=== PATIENT | female | born 1955 | race Caucasian/White ===

== ENCOUNTER 2019-03-03 19:09 | Inpatient (IN) ==
--- NOTE | 2019-03-03 20:20 | Diag Imaging Result Doc PS360 ---
EXAM: CHEST-PORTABLE HISTORY: chest pain TECHNIQUE: Portable chest single view COMPARISON: 03/02/2019 FINDINGS: The lungs are well expanded. The heart is not enlarged. The vessels are not distended. There are no infiltrates. No effusion identified. IMPRESSION: Negative exam. Electronically signed by Jeramie Trejo 03/03/2019 8:18 PM
[2019-03-03 20:55] LABS: BASO# 0.02 X1000 (0.0-0.2); BASO% 0.3 % (0.0-0.8); EOS% 5.2 % (0.0-10.0); HEMOGLOBIN 12.1 g/dL (12.0-16.0); LYMPH# 1.67 X1000 (1.2-3.4); LYMPH% 28.8 % (20.5-51.1); MCH 28.5 PG (27-31); MCHC 33.6 g/dL (33-37); MCV 84.7 FL (81-99); MONO# 0.55 X1000 (0.11-0.59); MONO% 9.5 % (1.7-9.3); MPV 11.3 FL (7.4-10.4); NEUT# 3.25 X1000 (1.4-6.5); NEUT% 56.2 % (42.2-75.2); PLT 237 X1000 (130-400); RBC 4.25 XMIL (4.2-5.4); RDW 13.1 % (11.5-14.5); WBC 5.79 X1000 (4.8-10.8)
[2019-03-03 21:16] LABS: ALB/GLOB RATIO 1.9; ALBUMIN 4.3 g/dL (3.5-5.0); CALCIUM 9.8 mg/dL (8.8-10.2); POTASSIUM 4.2 mmol/L (3.5-5.1); TOTAL BILIRUBIN 0.17 mg/dL (0.20-1.00); TOTAL PROTEIN 6.6 g/dL (6.3-8.3)
--- NOTE | 2019-03-03 22:21 | PROVIDER DOCUMENTATION ---
This chart was entered by Meredith Hartman Scribe, acting as scribe for Manoj Stanford DO. HPI-Cardiac General - General Chief Complaint: B/P Problems Stated Complaint: CHEST PAIN AGAIN(HERE THIS AM) Time Seen by Provider: 03/03/19 19:26 Source: patient Allergies/Adverse Reactions: Patient Allergies Allergy/AdvReac Type Severity Reaction Status Date / Time No Known Allergies Allergy Verified 03/03/19 00:10 Home Medications: Home Medication List Medication Instructions Recorded Confirmed Last Taken Type Diltiazem [Cardizem] 30 mg PO BID #60 tab 03/03/19 Unknown Rx - History of Present Illness-Cardiac Nature of Presenting Problem: 63 yof c/o hypotension and left sided cp radiating into left arm. pt was seen yest at [facility] yest by dr. stanford. pt on rx cardizem and has been keeping bp log today. lowest was 89/66 on left arm and 118/70 on rt arm was the highest. pt denies diaphoresis, nvd and chills. Location: reports: other (left sided) Timing: still present Review of Systems - Adult - REVIEW OF SYSTEMS - ADULT Constitutional: reports: no symptoms reported Eyes: reports: no symptoms reported Ears, Nose, Mouth & Throat: reports: no symptoms reported Cardiovascular: reports: see HPI, chest pain, other (hypotension). denies: orthopnea, palpitations, syncope Respiratory: reports: no symptoms reported. denies: dyspnea on exertion, shortness of breath, wheezing Gastrointestinal: reports: no symptoms reported. denies: diarrhea, nausea, vomiting Genitourinary: reports: no symptoms reported Musculoskeletal: reports: no symptoms reported Integumentary: reports: no symptoms reported Neurological: reports: no symptoms reported. denies: dizziness/vertigo, heada zoey/migraines, syncope Psychiatric: reports: no symptoms reported Endocrine: reports: no symptoms reported. denies: change in skin pigment, excessive sweating Hematologic/Lymphatic: reports: no symptoms reported Allergic/Immunologic: reports: no symptoms reported All Other Systems: Reviewed and Negative Past History - Adult - PAST MEDICAL HISTORY-ADULT Review of Records: reports: Old Records Reviewed, Nursing Assessment Review, Medications Reviewed, Social history reviewed & non-contributory. Major Childhood Illnesses: reports: denies history Cardiovascular: reports: HTN Respiratory: reports: denies history Gastrointestinal: reports: denies history Obstetrical/Gynecological: reports: denies history Genitourinary: reports: denies history Musculoskeletal: reports: arthritis, fibromyalgia Neurological: reports: denies history Psychiatric: reports: depression Endocrine/Immune: reports: denies history Other Conditions: reports: other - PRIOR SURGERIES/PROCEDURES Surgical/Procedure History: reports: other - IMMUNIZATION STATUS Childhood Immunizations: See Nurse Assessment Flu Vaccine: See Nurse Assessment - FAMILY HISTORY Family History: reviewed, not pertinent - SOCIAL HISTORY Smoking: non-smoker Substance Use: none/never Physical Exam-General - PHYSICAL EXAM-ADULT Initial Vital Signs Reviewed: Yes - CONSTITUTIONAL General Appearance: appears well, alert, no apparent distress - EYES Eyes: PERRL/EOMI, pink conjunctivae - HEAD, EARS, NOSE, MOUTH & THROAT HENMT: normocephalic/atraumatic, moist mucous membranes, normal ENT inspection - NECK Neck: non-tender, full range of motion, supple, normal inspection - RESPIRATORY Respiratory: chest non-tender, lungs clear, normal breath sounds - CARDIOVASCULAR Cardiovascular: normal peripheral pulses, regular rate, rhythm, no edema, no gallop, no JVD, no murmur. negative: JVD, bradycardia, tachycardia, extra beats, friction rub - GASTROINTESTINAL (ABDOMEN) Abdominal Exam: normal bowel sounds, non tender, soft, no organomegaly, no pulsatile mass. negative: rigid, rebound, tenderness - LYMPHATIC Lymphatic: no adenopathy - MUSCULOSKELETAL Back Exam: normal inspection, no CVA tenderness, no vertebral tenderness Extremity: normal range of motion, non-tender, normal inspection Peripheral Pulses: radial (R): 2+, radial (L): 2+ - SKIN Integumentary: normal color, normal turgor, warm/dry - NEUROLOGIC Neurologic: grossly normal, no motor/sensory deficits - PSYCHIATRIC Psych/Mental Status: normal mood/affect, normal thought content, normal thought process, oriented x 3 - HEART Score HEART Score: History: Moderately Suspicious HEART Score: ECG: Non-Specific Repolarization Disturbance/LBBB/PM HEART Score: Age: > or = 65 Years HEART Score: Risk Factors for Atherosclerotic Disease: 1 or 2 Risk Factors HEART Score: Troponin: < or = Normal Limit Total HEART Score:: 5 Progress - PLAN OF CARE/RESULTS Progress/Plan/Lab Results: Vital Signs - 8 hr 03/03/19 19:23 03/03/19 19:42 03/03/19 19:43 Temperature 97.8 F Pulse Rate 72 62 66 Respiratory Rate 16 15 16 Blood Pressure 117/58 133/71 O2 Sat by Pulse Oximetry 98 99 03/03/19 19:50 03/03/19 20:00 03/03/19 20:02 Temperature Pulse Rate 72 63 66 Respiratory Rate 20 19 21 Blood Pressure 128/70 O2 Sat by Pulse Oximetry 97 96 95 03/03/19 20:10 03/03/19 20:20 03/03/19 20:30 Temperature Pulse Rate 65 66 64 Respiratory Rate 22 18 20 Blood Pressure O2 Sat by Pulse Oximetry 95 96 96 03/03/19 20:32 Temperature Pulse Rate 66 Respiratory Rate 18 Blood Pressure 126/86 O2 Sat by Pulse Oximetry 98 Laboratory Results - last 24 hr 03/03/19 03/03/19 03/03/19 20:44 20:44 20:44 WBC 5.79 RBC 4.25 Hgb 12.1 Hct 36.0 L MCV 84.7 MCH 28.5 MCHC 33.6 RDW Std Deviation 13.1 Plt Count 237 MPV 11.3 H Immature Gran % (Auto) 0.0 Neut % (Auto) 56.2 Lymph % (Auto) 28.8 Barren % (Auto) 9.5 H Eos % (Auto) 5.2 Baso % (Auto) 0.3 Immature Gran # (Auto) 0.00 Neut # (Auto) 3.25 Lymph # (Auto) 1.67 Barren # (Auto) 0.55 Eos # (Auto) 0.30 Baso # (Auto) 0.02 Sodium 141 Potassium 4.2 Chloride 105 Carbon Dioxide 23 L Anion Gap 13 BUN 17 Creatinine 1.0 H Estimated GFR/1.73 m2 56 BUN/Creatinine Ratio 17 Glucose 86 Calculated Osmolality 282 Calcium 9.8 Total Bilirubin 0.17 L AST 16 ALT 17 Alkaline Phosphatase 81 Creatine Kinase 57 Troponin T < 0.010 Total Protein 6.6 Albumin 4.3 Globulin 2.3 Albumin/Globulin Ratio 1.9 Orders Category Date Time Status CHEST-PORTABLE [RAD] Stat Exams 03/03/19 19:59 Completed CBC WITH ELECTRONIC DIFF [HEME] Stat Lab 03/03/19 20:44 Completed CK PROFILE [SP CHEM] Stat Lab 03/03/19 20:44 Completed COMPREHENSIVE METABOLIC PANEL [CHEM] Stat Lab 03/03/19 20:44 Completed TROPONIN T Stat Lab 03/03/19 20:44 Completed EKG [EKG] Stat Ther 03/03/19 19:30 Ordered Result Diagrams: 03/03/19 20:44 03/03/19 20:44 - EKG 1 Time of EKG reading by physician:: 19:37 EKG Read and Signed by:: Manoj Stanford EKG Interpretation (*Must complete 3 of following elements*): Abnormal Rate: 66 Rhythm: NSR [place]: normal QRS: normal, other (low voltage qrs) RI Interval: normal ST Wave: non-specific ST changes (nonspecific st abnormality) - CONSULTS/PCP/HOSPITALIST Notification #1 *Consult/PCP/Hospitalist*: Dr. Soto Time Discussed: 22:16 Consult Disposition: Will see in ED Departure - Departure Date of Disposition Decision: 03/03/19 Time of Disposition Decision: 22:20 DIAGNOSIS: Chest pain Disposition: ADMITTED INPATIENT 09 Certified Medical Emergency: Emergent Condition: Stable Referrals and Follow-Ups: Gifty Bowen MD [Primary Care Provider] - - Critical Care Note This patient required my direct & personal management of CC.: No Attestation - Physician/ NIRMALA Attestation Patient care was provided by Advanced Practice Provider:: No The physician spent face to face time with patient:: Yes Advanced Practice Provider documentation review:: Supervising physician onsite and consulted in the evaluation and care of this patient. The physician did have a face to face encounter with the patient. This chart was documented by the indicated scribe, (Meredith Hartman Scribe) and accurately reflects the services I performed and decisions made by Hien wilkerson Thomas E., DO, as attested by the provider's signature.
--- NOTE | 2019-03-03 22:36 | EKG Report ---
Test Performed on : 03/03/2019 7:37:12 PM Test Reason : cp/ bp Blood Pressure : / mmHG Vent. Rate : 066 BPM Atrial Rate : 066 BPM P-R Int : 144 ms QRS Dur : 082 ms QT Int : 398 ms P-R-T Axes : 073 069 019 degrees QTc Int : 417 ms Normal sinus rhythm. Low voltage QRS Nonspecific ST abnormality Abnormal ECG When compared with ECG of 02-MAR-2019 23:02, (Unconfirmed) No significant change was found Unconfirmed Result
[2019-03-04] MEDS ORDERED: ZOFRAN IV PRN (00:38)
[2019-03-04] MEDS ORDERED: TYLENOL PO PRN (00:38)
[2019-03-04] MEDS: MORPHINE IV PRN ×4 (01:27→16:55)
--- NOTE | 2019-03-04 01:47 | HISTORY AND PHYSICAL ---
PRIMARY CARE PHYSICIAN: Dr. Bowen. CHIEF COMPLAINT: Chest pain, low blood pressure. HISTORY OF PRESENTING ILLNESS: A 63-year-old female with a history of fibromyalgia, hypertension, chronic low back pain, and atrial fibrillation, who presented to emergency department with complaint of having chest pain. She states that it was dull-like and was radiating to left upper extremity. The patient stated that she also noticed her blood pressure was getting low, around high 80s. She was concerned and subsequently she had come to the emergency department. In the ED, she was evaluated and, due to her presenting symptoms, it was thought that we will place her for observation for further evaluation and management. At time of my examination, she denied any headache, fever, chills, nausea, vomiting, diarrhea, hemoptysis, melena, weight changes, but complained of chest pain and shortness of breath. PAST MEDICAL HISTORY: Includes fibromyalgia, hypertension, chronic low back pain, atrial fibrillation, pericarditis. PAST SURGICAL HISTORY: Hysterectomy, cholecystectomy, right knee surgery, possible pericardiocentesis. ALLERGIES: No known drug allergies. CURRENT MEDICATIONS: She does not recall and nursing staff will reconcile. She stated that, however, she was taking diltiazem and [place]. SOCIAL HISTORY: No history of smoking, alcohol, or illicit drug use. FAMILY HISTORY: Positive for coronary artery disease in Father. REVIEW OF SYSTEMS: Fourteen point review of systems is as in HPI. Other systems negative. PHYSICAL EXAMINATION: GENERAL: Cooperative, friendly female. She is resting more comfortably now. VITAL SIGNS: Temperature 97.8 degrees, pulse 72, respirations 16, blood pressure 117/58. HEENT: Atraumatic, normocephalic. Extraocular movements intact. PERRLA. NECK: No masses. CHEST: Clear to auscultation. CARDIOVASCULAR: Regular rate and rhythm. ABDOMEN: Soft. Positive bowel sounds. EXTREMITIES: No edema. NEUROLOGIC: She is awake, alert, oriented x3. GENITOURINARY: No bladder distention. SKIN: Warm. LABORATORIES AND STUDIES: WBCs 5.79, hemoglobin 12.1, hematocrit 36.0, platelets 237,000. Sodium 141, potassium 4.2, chloride 105, CO2 is 23, BUN is 17, creatinine is 1.0. Glucose is 86. Chest x-ray, negative exam. ASSESSMENT: A 63-year-old female with a history of fibromyalgia, hypertension, chronic low back pain, and atrial fibrillation, had presented to emergency department with complaint of chest pain. She was evaluated in the emergency department, and due to her presenting symptoms, she will require admission for further management. 1. Chest pain. 2. Hypotension. Currently normotensive now. 3. Fibromyalgia. 4. Chronic low back pain. 5. Atrial fibrillation by history. PLAN: 1. We will admit patient to medical floor with telemetry. 2. Continue with cardiac workup. Check EKG, serial cardiac enzymes. Have patient continue on aspirin. We will use sublingual nitroglycerin p.r.n. chest pain. 3. Consult Cardiology. 4. Monitor blood pressure closely. Continue gentle hydration. 5. Give adequate pain control. 6. Continue to monitor patient on telemetry and check EKG. 7. Put patient on DVT prophylaxis with SCDs. 8. We will continue to follow and reassess, make further recommendation based on patient's clinical course. cc: Harvey Soto MD MTDD
[2019-03-04 06:59] LABS: CHOLESTEROL 136 mg/dL (0-200); HDL 69 mg/dL (45-65); LDL 55 mg/dL; TRIGLYCERIDES 60 mg/dL (35-135); VLDL 12 mg/dL
[2019-03-04] MEDS ORDERED: PRILOSEC PO SCH (07:00)
[2019-03-04] MEDS: ASPIRIN PO SCH (09:35)
[2019-03-04] MEDS: VITAMIN B-12 PO SCH (11:51)
[2019-03-04] MEDS: CARDIZEM PO SCH ×2 (11:51→20:22)
[2019-03-04] MEDS ORDERED: NITROGLYCERIN SL PRN (12:01)
--- NOTE | 2019-03-04 12:27 | PROGRESS NOTE ---
DATE: 03/04/2019 INTERVAL HISTORY: Ms. Zee was admitted for substernal chest pain and readings of low blood pressure which was in high 80s of about 1 to 2 days' duration. Overnight, she continues to have chest pain which is radiating to left arm. She states there are no other aggravating or relieving factors. She received aspirin and morphine in the morning time, which helps with her chest pain. EKG and troponins were largely unremarkable. Patient also complains of right- sided lower abdominal pain for which she had gone to visit her regular doctor. She states her brother had premature coronary artery disease and of myocardial infarction at the age of 34 and father had a myocardial infarction as well. VITALS: Currently, temperature 98 degrees, pulse 70, respiratory rate 19, blood pressure 131/71, saturating 99% on room air. PHYSICAL EXAMINATION: She does not appear in any acute distress. Oral cavity is moist. Lungs: Air entry bilaterally equal. No wheeze, rhonchi, crackles. Cardiovascular: S1, S2 normal. No murmur, rub, or gallop. There is mild localized tenderness in substernal region. She also has what appears to be a lipoma in the left neck, supraclavicular region. Abdomen is soft. There is tenderness in the right lower quadrant. No lower extremity edema. She is alert and oriented x3. She has also been undergoing a lot of stress right now. LABS: Suggestive of what appears to be chronic kidney dysfunction in stage IIIA. Echocardiogram has been ordered. EKG had normal sinus rhythm. ASSESSMENT AND PLAN: 1. Chest pain. She does have some atypical features. However, she also mentions history of premature coronary artery disease in her brother and positive family history of coronary artery disease in her father. She also mentions exertional shortness of breath. Considering her age and other risk factors, I would consult cardiology for likely nuclear medicine stress test for further risk stratification and cardiology evaluation is pending. Her troponins and EKG are largely unremarkable, ruling out acute coronary syndrome. I will continue her on 325 aspirin daily. We will start her on nitroglycerin sublingually as needed for chest pain. 2. Reported history of Hypotension: She told me it was in high 80s. Unclear if she was really symptomatic from it. Her dilitiazem could have contributed to it. I will monitor under telemetry unit with frequent BP checks. 2. History of paroxysmal atrial fibrillation. There is no record of this. However, she tells me that her regular doctor told her 5 days ago when she saw her in her clinic that she was in atrial fibrillation. I will keep her on diltiazem which is her home medication and aspirin. I will also get a diabetes panel and a lipid panel. I advised her outpatient discussion with her hull inspector and regular doctor for starting anticoagulation for primary CVA prophylaxis. 3. History of fibromyalgia, insomnia, and anxiety. Continue home tizanidine, zolpidem, bupropion, and [place] for chronic pain. 4. Disposition. I will continue to monitor patient inside the hospital. Plan of care discussed with her. All of her questions have been answered. cc: Carl Blair MD MTDD
[2019-03-04] MEDS: LOVENOX SUBQ SCH (12:41)
[2019-03-04] MEDS: NORCO-10 PO PRN ×2 (12:41→21:02)
--- NOTE | 2019-03-04 15:17 | CARDIOLOGY CONSULTATION ---
DATE: 03/04/2019 CHIEF COMPLAINT: Chest pain. HISTORY OF PRESENT ILLNESS: Ms. Zee is a 63-year-old white female with a history of previous pericardial effusion with pericardial window as well as palpitations. She presents for evaluation of chest pain that seems like it has been a relatively chronic feature for many years, but over the last week it has worsened. There is an exertional component it seems like associated with some shortness of breath and some radiation down the left arm. In addition, there is a component reproducible with palpation of the left chest wall. She reports no previous trauma to that area. She is a somewhat difficult historian as she frequently relates medical history from several years ago when being questioned about current situations. She reports no recent febrile illnesses. No recent changes in medications. PAST MEDICAL HISTORY: 1. Significant for palpitations. Has undergone previous evaluations per Dr. Awad with no apparent cause. 2. History of pericarditis with pericardial window performed many years ago. 3. Chronic pain. 4. Reflux disease. SOCIAL HISTORY: No tobacco, alcohol, or illicit drugs. FAMILY HISTORY: Apparent history of coronary artery disease in her father. REVIEW OF SYSTEMS: A 10-system review of systems is negative except for those things mentioned in HPI. PHYSICAL EXAMINATION: Vital Signs: Afebrile. Heart rate 75, blood pressure 129/75. General: No acute distress. Cardiovascular: She sounds to be in a regular rate and rhythm. She has no obvious murmur. She has no S3. She has no lower extremity edema. Chest: Clear bilaterally. She has no increased work of breathing. Abdomen: Soft, nontender, nondistended. She has no obvious organomegaly. Skin: Warm and dry throughout without any rashes. Neurological: She is moving all extremities well. She has no lateralizing deficits. PERTINENT DATA: She had a chest x-ray that was unremarkable. EKG shows sinus rhythm, no acute ischemic changes. LABORATORY DATA: Shows a white count of 5.8, hematocrit 36, platelet count 237,000. Sodium 141, potassium 4.2, BUN 17, creatinine is 1. Her LDL is 55. HDL 69. Cardiac enzymes negative. ASSESSMENT: Ms. Zee is a 63-year-old female who comes in with complaints of chest pain. PLAN: We will proceed with myocardial perfusion imaging in the morning. Initial review of her echo shows intact wall motion but no obvious segmental abnormalities. If this is unremarkable, then she can follow up with Dr. Awad as an outpatient. cc: Asim Sky MD
[2019-03-04] MEDS: ZANAFLEX PO SCH (20:21)
[2019-03-04] MEDS: AMBIEN PO SCH (20:21)
[2019-03-04] MEDS: WELLBUTRIN SR PO SCH (20:21)
[2019-03-05] MEDS: PRILOSEC PO SCH (06:02)
--- NOTE | 2019-03-05 07:50 | EKG Report ---
Test Performed on : 03/05/2019 07:36:33 AM Test Reason : chest pain Blood Pressure : / mmHG Vent. Rate : 073 BPM Atrial Rate : 073 BPM P-R Int : 148 ms QRS Dur : 082 ms QT Int : 410 ms P-R-T Axes : 073 082 032 degrees QTc Int : 451 ms Normal sinus rhythm. Normal ECG When compared with ECG of 03-MAR-2019 19:37, (Unconfirmed) No significant change was found Confirmed by Dean Taylor MD ([id number]) on 03/05/2019 4:11:36 PM
[2019-03-05 07:53] LABS: CALCIUM 9.2 mg/dL (8.8-10.2); CREATININE 1.2 mg/dL (0.5-0.9)
[2019-03-05] MEDS: NORCO-10 PO PRN ×2 (08:16→20:50)
[2019-03-05] MEDS ORDERED: LEXISCAN ONE (10:49)
--- NOTE | 2019-03-05 12:40 | ECHO REPORT ---
ORDER DATE: 03/04/2019 INDICATION: Chest pain. FINDINGS: 1. The right atrium appears normal in size at 2.2 cm. 2. Mild tricuspid regurgitation. RV systolic pressure of 37. 3. Normal RV size and systolic function. 4. No significant pulmonic insufficiency. 5. Suggestion of mild left atrial enlargement, although the measurement is only 3.4 cm. 6. No mitral valve prolapse. Mild mitral regurgitation. No mitral stenosis. 7. Normal LV size, end-diastolic dimension of 3.9. Normal wall thicknesses with a posterior and interventricular septal wall thickness of 0.8 cm each. Normal LV systolic function. Estimated EF of 55-60% with normal wall motion. 8. Aortic valve opens well. There is trace insufficiency. No stenosis. 9. Aorta appears normal in visualized segments. 10. No pericardial effusion seen. cc: MD Harvey Zavala MD
[2019-03-05] MEDS: WELLBUTRIN SR PO SCH ×2 (13:03→20:57)
[2019-03-05] MEDS: VITAMIN B-12 PO SCH (13:03)
[2019-03-05] MEDS: CARDIZEM PO SCH ×2 (13:03→20:57)
[2019-03-05] MEDS: ASPIRIN PO SCH (13:03)
[2019-03-05] MEDS: MORPHINE IV PRN (13:04)
[2019-03-05] MEDS: LOVENOX SUBQ SCH (13:04)
--- NOTE | 2019-03-05 14:14 | Diag Imaging Result Document ---
PROCEDURE NAME: MYOCARDIAL PERF SCAN, STR/REST - 03/05/2019 LEXISCAN CARDIOLITE STRESS TEST: Lexiscan was infused per standard protocol. There was no chest pain. Stress electrocardiogram was negative for ischemia. Following Lexiscan infusion, Cardiolite was injected. Gated SPECT images were obtained in standard views. Images revealed chest wall attenuation. Normal myocardial perfusion. Left ventricular ejection fraction by gated SPECT was 81%. Normal left ventricular cavity size. CONCLUSIONS: 1. No chest pain. 2. Negative Lexiscan stress electrocardiogram. 3. Normal myocardial perfusion. 4. Left ventricular ejection fraction by gated SPECT was 81%. Baseline electrocardiogram revealed normal sinus rhythm with nonspecific ST-T changes. cc: MD Asim Valente MD
--- NOTE | 2019-03-05 17:02 | PROGRESS NOTE ---
DATE: 03/05/2019 INTERVAL HISTORY: Her troponins were negative. Echocardiogram had normal ejection fraction without any acute valvular pathology. She underwent nuclear medicine myocardial perfusion stress test which did not detect any inducible ischemia and had normal ejection fraction without any regional wall motion abnormality. SUBJECTIVE: I in discussed with the patient about possibly chronic gastroesophageal reflux disease and anxiety contributing to her chest discomfort. She is now worried about her right upper quadrant pain and she states that she had a partial nephrectomy about 40 years ago. However, since last few weeks, she has been complaining of right-sided abdominal pain and her provider had scheduled her to get an outpatient ultrasound done, and she is wondering if that could be done inside this hospital. I explained to her that this is an outpatient procedure and she could just get it done outpatient. However, she states that she is under a lot of stress because of the many social issues, and it would be stressful for her to go back today and come back to get that ultrasound done, and she is again requesting to get it done while she is here, so I decided to keep her here and get the ultrasound done. OBJECTIVE: Vital Signs: Temperature 97.8 degrees, pulse 80, respiratory rate 18, blood pressure 130/67, saturating 98% on room air. General: Does not appear in any acute distress. HEENT: Oral cavity is moist. Lungs: Air entry bilaterally equal. No wheeze, rhonchi, crackles. Cardiovascular: S1, S2 normal. No murmur or gallop. Abdomen: Soft. Mild tenderness in right upper quadrant without any guarding or rigidity. Extremities: No lower extremity edema. Neurologic: She is alert and oriented x3. LABORATORY DATA: Suggestive of negative troponins. Her LDL is 55, HDL is 69. She does have chronic kidney disease stage 3. ASSESSMENT AND PLAN: 1. Chest pain, likely related to chronic gastroesophageal reflux disease as well as anxiety. Her nuclear medicine stress test, echocardiogram, EKG and troponins have been negative. 2. Subacute right upper quadrant pain. She states she did have prior history of partial nephrectomy about 40 years ago, the details of which are unclear to me. Her outpatient provider had recommended ultrasound that she was supposed to get done tomorrow. The patient wants to remain inside the hospital for that ultrasound, so I have requested ultrasound to be done. She should follow up with the results with her outpatient provider. 3. Reported history of hypotension. The patient does mention that she does have 120 mg of capsule and she has been opening it and taking half a capsule every 12 hours which was extended release preparation. I explained to her about not doing that and that could have contributed to her hypotension. Her current dose of diltiazem is not bringing any blood pressure down. 4. Paroxysmal atrial fibrillation. Continue diltiazem. Outpatient cardiology followup. 5. Anxiety and chronic pain with fibromyalgia and insomnia. Continue home tizanidine, zolpidem, bupropion, and [place]. DISPOSITION: When right upper ultrasound abdomen is complete, my plan is to discharge her home. I will go ahead and place a discharge order for tomorrow morning after ultrasound is done. Plan of care discussed with her and her family and friends at bedside. All of their questions have been answered. cc: Carl Blair MD
--- NOTE | 2019-03-05 18:19 | Diag Imaging Result Doc PS360 ---
EXAM: US ABDOMEN-COMPLETE 03/05/2019 HISTORY: Constant RUQ pain. H/o ?partial Rt nephrectomy TECHNIQUE: Abdominal ultrasound COMMENT: The gallbladder is surgically absent. The pancreas is normal in appearance. The visualized portions of the aorta and inferior vena cava are within normal limits. The liver is unremarkable. There is antegrade flow in the portal vein. There is no evidence of biliary dilatation the common bile duct measuring less than 8 mm in diameter. The kidneys are without evidence of hydronephrosis or mass. The spleen is not enlarged. There are no abnormal fluid collections. IMPRESSION: No evidence of acute disease. Electronically signed by Jeyson Catherine 03/05/2019 6:17 PM
[2019-03-05] MEDS: ZANAFLEX PO SCH (20:57)
[2019-03-05] MEDS: AMBIEN PO SCH (20:58)
[2019-03-06] MEDS: PRILOSEC PO SCH (06:11)
[2019-03-06 07:41] VITALS: BP 132/71
[2019-03-06] MEDS ORDERED: PNEUMOVAX 23 IM ONE (08:41)
[2019-03-06] MEDS: VITAMIN B-12 PO SCH (09:03)
[2019-03-06] MEDS: CARDIZEM PO SCH (09:03)
[2019-03-06] MEDS: WELLBUTRIN SR PO SCH (09:03)
--- NOTE | 2019-03-06 10:03 | DISCHARGE SUMMARY ---
ADMISSION DATE: 03/05/2019 DISCHARGE DATE: 03/06/2019 DISCHARGE DISPOSITION: Home. DISCHARGE CONDITION: Hemodynamically stable. She does not have any more chest pain. She is denying any shortness of breath or palpitation. DISCHARGE DIAGNOSES: 1. Atypical chest pain. 2. Reported history of hypotension with blood pressure in high 80s/low 50s, likely due to inappropriate use of diltiazem. 3. Subacute right upper quadrant abdominal pain. OTHER DIAGNOSES: 1. History of paroxysmal atrial fibrillation. 2. History of fibromyalgia. 3. History of insomnia. 4. History of anxiety. 5. History of cholecystectomy. 6. History of pericardiocentesis for pericarditis. 7. Chronic kidney disease stage 3. VITAL SIGNS: At the time of current dictation, temperature 97.8 degrees, pulse 80, respiratory rate 18, blood pressure 132/67, saturating 98% on room air. PHYSICAL EXAMINATION: At the time of dictation oral cavity is moist. Lungs: Air entry bilaterally equal. No wheeze, rhonchi. S1 normal. No murmur or gallop. Abdomen: Soft. She has tenderness in right upper quadrant without guarding or rigidity. No lower extremity edema. She is alert and oriented x3. LABS: Significant labs during hospital admission and discharge, hemoglobin 12.1, WBC 5.7, platelets 237,000. Potassium 4, BUN 13, creatinine 1.2, diagnosis of chronic kidney disease stage 3. Troponins are negative x4. LDL was 55, HDL was 69, total cholesterol 136. IMAGING: Significant imaging during hospital admission, myocardial perfusion scan, she did not have any chest pain during the stress test. It was negative stress electrocardiogram, normal myocardial perfusion with ejection fraction of 81% by gated SPECT. Baseline electrocardiogram revealed normal sinus rhythm with nonspecific ST-T changes. Echocardiogram had ejection fraction of 55 to 60% with normal wall motion without any significant valvular pathology. Chest x-ray on admission had a negative exam. EKG had normal sinus rhythm, low voltage QRS and nonspecific ST abnormality. HOSPITAL COURSE SUMMARY: Ms. Zee is a [id number] lady with past medical history of anxiety, who came in with chief complaint of intermittent chest pain located in the center of the chest associated with mild shortness of breath without any exertional worsening. However, she did have prior history of premature coronary artery disease in her brother and positive family history of coronary artery disease in her father and she complained of exertional shortness of breath on climbing up stairs. Considering age and other risk factors, Cardiology was consulted. Though EKG did not have any acute coronary syndrome-related changes and troponins were negative for further risk stratification, she underwent nuclear medicine myocardial perfusion stress imaging which did not detect any regional wall motion abnormality or inducible ischemia. It was thought that her chest pain was likely related to her chronic gastroesophageal reflux disease and anxiety and she was advised to follow up with her regular doctor. She has also been complaining of right-sided abdominal pain since many months now and she was being followed up with her regular doctor who had scheduled to get an outpatient ultrasound on her on March 06. Since patient was in the hospital, she requested ultrasound to be done. I had explained to her that it may not be done until the next 24 hours considering the timing and it was already the end of the day. However, she persistently requested to remain inside the hospital to get the ultrasound done, so it was ordered. She will follow up with the results with her outpatient provider. At the time of discharge detailed discharge instructions were provided. Her hypotension was thought to be related to inappropriate taking diltiazem which she was taking for paroxysmal atrial fibrillation. She was opening the delayed release capsule and taking the half capsule twice a day, which could have contributed to hypotension. Inside the hospital she did not have any hypotensive episode. TIME SPENT: More than 30 minutes were spent discharging this patient. cc: MD BE Galvez
== END 2019-03-06 09:38 | disposition home or self-care (01) | DRG 392 ==
LOC: ED 19:09 → SUATTDRO 23:56 → INTOOBSV 23:56 → 3N 23:56
PROVIDERS: ATTEND Internal Medicine

== ENCOUNTER 2019-10-11 21:10 | Inpatient (IN) ==
[2019-10-11 22:19] LABS: BASO# 0.02 X1000 (0.0-0.2); BASO% 0.1 % (0.0-0.8); EOS# 0.45 X1000 (0.0-0.7); EOS% 3.3 % (0.0-10.0); HEMATOCRIT 40.7 % (37.0-47.0); HEMOGLOBIN 12.6 g/dL (12.0-16.0); IMM GRAN# 0.05 X1000 (0.0-0.04); IMM GRAN% 0.4 % (0.0-0.5); LYMPH# 1.55 X1000 (1.2-3.4); LYMPH% 11.4 % (20.5-51.1); MCH 26.6 PG (27-31); MCV 85.9 FL (81-99); MONO# 0.82 X1000 (0.11-0.59); MPV 9.2 FL (7.4-10.4); NEUT# 10.72 X1000 (1.4-6.5); NEUT% 78.8 % (42.2-75.2); PLT 814 X1000 (130-400); RBC 4.74 XMIL (4.2-5.4); RDW 14.9 % (11.5-14.5); WBC 13.61 X1000 (4.8-10.8)
[2019-10-11 22:31] LABS: ALB/GLOB RATIO 0.8; ALBUMIN 3.8 g/dL (3.5-5.0); CALCIUM 10.5 mg/dL (8.8-10.2); POTASSIUM 4.3 mmol/L (3.5-5.1); TOTAL BILIRUBIN 0.32 mg/dL (0.20-1.00); TOTAL PROTEIN 8.5 g/dL (6.3-8.3)
--- NOTE | 2019-10-11 22:45 | PROVIDER DOCUMENTATION ---
HPI-General Adult - General Chief Complaint: Post Op Complaint Stated Complaint: POST OP X 2 WEEKS-COMPLICATIONS Time Seen by Provider: 10/11/19 22:31 Source: patient Allergies/Adverse Reactions: Patient Allergies Allergy/AdvReac Type Severity Reaction Status Date / Time morphine Allergy ANAPHYLAXIS Verified 10/11/19 22:59 Home Medications: Home Medication List Medication Instructions Recorded Confirmed Last Taken Type Bupropion HCl [Bupropion HCl Sr] 1 tab PO BID 03/04/19 10/11/19 09/17/19 21:00 History 100 mg Cyanocobalamin (Vitamin B-12) 1,000 mcg IJ DIRECTED 03/04/19 10/11/19 09/11/19 09:00 History [Cyanocobalamin Injection] 1000 mcg Estradiol 1 mg PO DAILY 03/04/19 10/11/19 09/17/19 09:00 History 1 mg Furosemide 1 tab PO BID PRN PRN 03/04/19 10/11/19 09/16/19 09:00 History 20 mg Hydrocodone/Acetaminophen 1 tab PO TID PRN PRN 03/04/19 10/11/19 09/17/19 21:00 History [Hydrocodone-Acetamin 10-325 mg] 10 mg/325 mg Omeprazole 1 cap PO DAILY 03/04/19 10/11/19 09/17/19 09:00 History 40 mg Zolpidem Tartrate 1 tab PO QHS 03/04/19 10/11/19 09/17/19 21:00 History 10 mg Diltiazem [Cardizem] 30 mg PO BID #60 tab 03/05/19 10/11/19 09/17/19 21:00 Rx 30 mg Cyclobenzaprine [Flexeril] 5 mg PO BID 09/18/19 10/11/19 09/17/19 21:00 History 10 mg Hydrocodone/Acetaminophen [[place]fall 1 ea PO Q6H PRN #20 tab 09/25/19 10/11/19 Unknown Rx 7.5-325 Tablet] - History of Present Illness -Gen Adult Nature of Presenting Problems: Patient comes in after having colon sx with dr rodriguez. She saw him yesterday and was doing fine. Today she noted that she was not having as much stool as she had been having then when she urinated she had stool in her urine so she came in the the ED. She is having some abd pain at the surgical site. denies fever or chills. Review of Systems - Adult - REVIEW OF SYSTEMS - ADULT Constitutional: reports: no symptoms reported. denies: chills, fever, fatique, night sweats, weight gain, weight loss Eyes: reports: no symptoms reported. denies: discharge, dry eyes, decreased vision, blurred vision, double vision, redness Ears, Nose, Mouth & Throat: reports: no symptoms reported. denies: ear disc harge, hearing loss, tinnitus, nose pain, mouth/dental pain, mouth swelling, hoarseness Cardiovascular: reports: no symptoms reported. denies: chest pain, edema, heart murmur, orthopnea, palpitations, poor circulation, PND, syncope Respiratory: reports: no symptoms reported. denies: chronic cough, cough, dyspnea on exertion, excessive sputum production, hemoptysis, pleurisy, shortness of breath, wheezing Gastrointestinal: reports: see HPI, abdominal pain, diarrhea, other (stool in urine). denies: constipation, frequent heartburn, nausea, poor appetite, rectal bleeding, vomiting Genitourinary: reports: see HPI, other (stool in urine). denies: dysuria, discharge, frequency, flank pain, frequent UTI's, hematuria, incontinence, urinary retention, urgency Musculoskeletal: reports: no symptoms reported. denies: bone pain, back pain, frequent leg cramps, joint pain, joint swelling, muscle aches, muscle weakness, neck pain Integumentary: reports: no symptoms reported. denies: hives, hair loss, itching, nail changes, rash, skin sores/ulcer, skin thickening Neurological: reports: no symptoms reported. denies: ataxia, dizziness/vertigo, loss of balance, numbness, paresthesia, slurred speech, syncope, tremors Psychiatric: reports: no symptoms reported. denies: anxiety, anti-depressant use, alcohol/drug dependence, depression, insomnia, panic attacks, suicidal thoughts Endocrine: reports: no symptoms reported. denies: change in skin pigment, excessive sweating, cold intolerance, increased hunger, increased thirst Hematologic/Lymphatic: reports: no symptoms reported. denies: blood clots, easy bruising, low blood count, lymphedema, prolonged bleeding, transfusions Allergic/Immunologic: reports: no symptoms reported. denies: allergic reactions, allergic rhinitis, asthma, food allergy, hay fever, hives, positive PPD, urticaria All Other Systems: Reviewed and Negative Past History - Adult - PAST MEDICAL HISTORY-ADULT Review of Records: reports: Old Records Reviewed, Nursing Assessment Review, Medications Reviewed, Social history reviewed & non-contributory. Major Childhood Illnesses: reports: denies history Cardiovascular: reports: A-Fib, HTN, pericardial disease Respiratory: reports: denies history Gastrointestinal: reports: denies history Obstetrical/Gynecological: reports: denies history Genitourinary: reports: denies history Musculoskeletal: reports: chronic pain, fibromyalgia Neurological: reports: denies history Endocrine/Immune: reports: denies history Other Conditions: reports: denies history - PRIOR SURGERIES/PROCEDURES Surgical/Procedure History: reports: recent surgery, hysterectomy - IMMUNIZATION STATUS Childhood Immunizations: See Nurse Assessment Flu Vaccine: See Nurse Assessment - FAMILY HISTORY Family History: reviewed, not pertinent - SOCIAL HISTORY Smoking: denies Substance Use: none/never Alcohol Use Frequency: never Living Situation: family Physical Exam-General - PHYSICAL EXAM-ADULT Initial Vital Signs Reviewed: Yes - CONSTITUTIONAL General Appearance: appears well, alert, no apparent distress - EYES Eyes: PERRL/EOMI, pink conjunctivae - HEAD, EARS, NOSE, MOUTH & THROAT HENMT: normocephalic/atraumatic, moist mucous membranes, normal ENT inspection - NECK Neck: non-tender, full range of motion - RESPIRATORY Respiratory: chest non-tender, lungs clear, normal breath sounds - CARDIOVASCULAR Cardiovascular: normal peripheral pulses, regular rate, rhythm, no edema - GASTROINTESTINAL (ABDOMEN) Abdominal Exam: abnormal bowel sounds, tenderness, other (surgical site is clean dry and intact) - LYMPHATIC Lymphatic: no adenopathy - MUSCULOSKELETAL Back Exam: normal inspection Extremity: normal range of motion, non-tender, normal gait, normal inspection - SKIN Integumentary: normal color, normal turgor, warm/dry - NEUROLOGIC Neurologic: sign artist II-XII nml as tested, grossly normal - PSYCHIATRIC Psych/Mental Status: normal mood/affect, normal thought content, normal thought process, oriented x 3 Progress - PLAN OF CARE/RESULTS Progress/Plan/Lab Results: Vital Signs - 8 hr 10/11/19 21:12 Temperature 98.4 F Pulse Rate 106 H Respiratory Rate 20 Blood Pressure 136/73 O2 Sat by Pulse Oximetry 99 Laboratory Results - last 24 hr 10/11/19 10/11/19 21:26 21:26 WBC 13.61 H RBC 4.74 Hgb 12.6 Hct 40.7 MCV 85.9 MCH 26.6 L MCHC 31.0 L RDW Std Deviation 14.9 H Plt Count 814 H MPV 9.2 Immature Gran % (Auto) 0.4 Neut % (Auto) 78.8 H Lymph % (Auto) 11.4 L [place] % (Auto) 6.0 Eos % (Auto) 3.3 Baso % (Auto) 0.1 Immature Gran # (Auto) 0.05 H Neut # (Auto) 10.72 H Lymph # (Auto) 1.55 [place] # (Auto) 0.82 H Eos # (Auto) 0.45 Baso # (Auto) 0.02 Sodium 137 Potassium 4.3 Chloride 99 Carbon Dioxide 25 Anion Gap 13 BUN 12 Creatinine 1.0 H Estimated GFR/1.73 m2 55 BUN/Creatinine Ratio 12 Glucose 87 Calculated Osmolality 273 Calcium 10.5 H Total Bilirubin 0.32 AST 17 ALT 17 Alkaline Phosphatase 160 H Total Protein 8.5 H Albumin 3.8 Globulin 4.7 Albumin/Globulin Ratio 0.8 Amylase 36 Lipase 20 Orders Category Date Time Status Saline Loc DIRECTED Care 10/11/19 21:16 Active NPO Diet 10/11/19 21:16 Active AMYLASE [CHEM] Stat Lab 10/11/19 21:26 Completed CBC WITH ELECTRONIC DIFF [HEME] Stat Lab 10/11/19 21:26 Completed COMPREHENSIVE METABOLIC PANEL [CHEM] Stat Lab 10/11/19 21:26 Completed LIPASE [CHEM] Stat Lab 10/11/19 21:26 Completed URINALYSIS W/POSS RFLX CULT [URINALYSIS] Stat Lab 10/11/19 21:16 Uncollected Result Diagrams: 10/11/19 21:26 10/11/19 21:26 - CONSULTS/PCP/HOSPITALIST Notification #1 *Consult/PCP/Hospitalist*: Dr Rodriguez Time Discussed: 03:00 Consult Disposition: Will see in ED, Admit - CHANGE OF SHIFT REPORT (ED Provider) 1 Report Given and Care Transferred to:: [facility] Time of Transfer: 23:35 Items Pending: Labs, CT/MRI Results Departure - Departure Date of Disposition Decision: 10/12/19 Time of Disposition Decision: 04:07 DIAGNOSIS: Fistula, UTI (urinary tract infection) Disposition: ADMITTED INPATIENT 09 Certified Medical Emergency: Emergent Condition: Fair Additional Instructions: ED Follow Up Instructions: You have been treated by a care provider in the Emergency Department. These instructions are being provided to you so you can have an understanding of how to care for yourself upon discharge. Upon discharge from the Emergency Department, you are responsible for making arrangements for follow-up care by a physician of your choice. Take all prescribed medications as directed. Return to the Emergency Department immediately for any new or worsening symptoms. You may call the Physician Referral phone number at [phone] to obtain a list of Physicians who are taking new patients. Referrals and Follow-Ups: Chavo Rodriguez MD [Primary Care Provider] - - Critical Care Note This patient required my direct & personal management of CC.: No Attestation - Physician/ NIRMALA Attestation Patient care was provided by Advanced Practice Provider:: Yes Advanced Practice Provider:: Merline Arellano Advanced Practice Provider documentation review:: The Mid-level provider documentation, treatment plan and medical decision making was reviewed by the physician who agrees with all treatment and medical decision making by the MLP. The physician spent face to face time with patient:: Yes Advanced Practice Provider documentation review:: Supervising physician onsite and consulted in the evaluation and care of this patient. The physician did have a face to face encounter with the patient.
[2019-10-11] MEDS ORDERED: NS 1,000 ML IV ONE (23:24)
[2019-10-11] MEDS ORDERED: NORCO-10 PO ONE (23:38)
[2019-10-11] MEDS ORDERED: NORCO-10 ONE (23:39)
[2019-10-11 23:55] LABS: URINE SOURCE CLEAN CATCH
[2019-10-11 23:58] LABS: BILIRUBIN URINE NEGATIVE (NEGATIVE); BLOOD URINE NEGATIVE (NEGATIVE); COLOR YELLOW; GLUCOSE URINE NEGATIVE (NEGATIVE); KETONE URINE NEGATIVE (NEGATIVE); LEUKOCYTES URINE LARGE (NEGATIVE); NITRITE URINE NEGATIVE (NEGATIVE); PROTEIN URINE TRACE mg/dL (NEGATIVE); SP GRAVITY URINE 1.015; TURBIDITY URINE HAZY (CLEAR); UROBILINOGEN URINE NORMAL (NORMAL)
[2019-10-12 00:30] LABS: UR EPITHELIAL CELLS <10 /HPF (<10); URINE BACTERIA NEGATIVE /HPF; URINE RBC <10 /HPF (<10); URINE WBC TNTC /HPF (<10)
[2019-10-12 00:31] LABS: URINE CASTS NONE SEEN; URINE CRYSTALS NONE SEEN; URINE SMALL ROUND CELLS NONE SEEN; URINE YEAST NONE SEEN
[2019-10-12] MEDS ORDERED: ZOFRAN ONE (03:43)
[2019-10-12] MEDS ORDERED: ROCEPHIN 1 GM in NS 50 ML IV ONE (04:08)
[2019-10-12] MEDS ORDERED: LR 1,000 ML IV ONE (05:01)
[2019-10-12] MEDS ORDERED: LASIX PO PRN (05:01)
[2019-10-12] MEDS: NORCO-10 PO PRN ×2 (05:31→15:13)
[2019-10-12] MEDS: ZOSYN 3.375 GM in NS 50 ML IV SCH ×3 (05:31→22:49)
--- NOTE | 2019-10-12 06:01 | HISTORY AND PHYSICAL ---
ADMITTING DIAGNOSIS: Possible colovaginal fistula. HISTORY OF PRESENT ILLNESS: A 64-year-old female well known to me who underwent a colectomy just over 2 weeks ago for colon perforation. She had been doing relatively well. I had actually seen her in the office, and she had been progressing. She had been having normal bowel movements, and not had any really major issues. We had discussed when she was there she had a little bit of abdominal pain, but it was not as intense per the patient. She apparently strained during having a bowel movement, and had what she considered stool coming out of her vagina. She had a CT scan, and there was some questionable concern of a colovaginal fistula. It looks like her staple line is intact, but again there is some question. Given this, admission orders have been placed. PAST MEDICAL HISTORY: Paroxysmal atrial fibrillation, fibromyalgia, insomnia, anxiety, history of pericardial centesis for pericarditis, chronic kidney disease, and low back pain. PAST SURGICAL HISTORY: Includes recent exploratory laparotomy, hysterectomy, cholecystectomy, right knee surgery, and pericardiocentesis. ALLERGIES: None. HOME MEDICATIONS: Reviewed. Of note, she is on [place] 10's. FAMILY HISTORY: Reviewed with the patient and noncontributory. SOCIAL HISTORY: Lives at home. REVIEW OF SYSTEMS: Full 14 systems reviewed, and negative except as specified in HPI. PHYSICAL EXAMINATION: VITAL SIGNS: Patient is currently afebrile. She has mild tachycardia. Blood pressure stable. GENERAL: No acute distress. Alert and interactive female looks stated age. HEENT: Normocephalic, atraumatic. Pupils equal, round, and reactive to light. Mucous membranes moist. Oropharynx benign. NECK: Supple. Trachea midline. CARDIOVASCULAR: Regular rate and rhythm. LUNGS: Grossly clear. ABDOMEN: Soft. There is some discomfort suprapubically, but it seems appropriate. Incision seems to be healing well. PELVIC: Vaginal exam was done by the ED physician while I was present and purulence was noted in the vagina but no obvious stool was noted and patient did have some stool residue near her anus from recent bowel movement.. EXTREMITIES: Moves all extremities. NEUROLOGIC: Grossly intact. SKIN: No signs of jaundice. VASCULAR: All extremities perfused. LABORATORY: Reviewed. White blood count 13, hematocrit 40, and platelet count 284,000. Remainder of labs reviewed. ASSESSMENT AND PLAN: A 64-year-old female with possible colovaginal fistula. Colovaginal fistula. At this time, I agree with admission. Vaginal examination did not show any fecal material present. This could have been an abscess or contained leak that has decompressed out of the vaginal. Regardless there is the possibility of a fistula based on history. We will put her on some antibiotics. We will get a Gastrografin enema to see if there is actually a connection. She is pretty recent out of her surgery so we may need to try to get her through this a little further out before re- entering her abdomen unless she becomes toxic. cc: Chavo Fall MD MTDD
[2019-10-12] MEDS: PRILOSEC PO SCH (06:30)
--- NOTE | 2019-10-12 07:15 | Diag Imaging Result Doc PS360 ---
EXAM: CT ABD/PELVIS W/IV CONT ONLY 10/11/2019 HISTORY: recent sx with stool in her urine TECHNIQUE: This exam was performed using automated exposure control, adjustment of mA or kV according to patient size, and/or use of iterative reconstruction technique. COMMENT: There are no previous abdominal studies. Comparison is made with the thoracic study of 09/22/2019 were possible. There are some platelike opacities present in the lung bases which have actually improved since the previous study. The pleural effusions which were present previously are no longer present. The aorta is normal in caliber. The mesenteric and renal arteries are patent. There is a stone or stones in the lower pole of the right collecting system measuring in excess of 5 mm. There is no evidence of hydronephrosis or mass. There has been cholecystectomy. The spleen and adrenal glands are not enlarged. The pancreas is unremarkable and stable in appearance. The liver contains some fatty change near the falciform ligament. There is no evidence of significant adenopathy. There is no evidence of bowel obstruction. There are postsurgical changes present in the anterior abdominal wall in the midline. Pelvis: The distal appendix measures less than 7 mm in diameter. The appendix passes adjacent to a focus of inflammatory change with what may be extraluminal gas adjacent to the distal sigmoid colon. There are two apparent anastomoses in this area presumably from previous resection. There is gas and fluid in the vaginal cuff. There has been hysterectomy. There are diverticula in the remnant of the sigmoid colon. The urinary bladder is not distended and there is no gas in the urinary bladder. There is no apparent free fluid. The regional skeleton appears to be intact. IMPRESSION: 1. Improved basilar atelectasis and pleural effusions compared to 09/22/2019. 2. Right nephrolithiasis. 3. Inflammatory changes adjacent to resection site of distal sigmoid colon with apparent fistulization to the vaginal cuff. There is no evidence of enterovaginal fistula. The appendix is stuck down to the inflammatory process. Comparison with previous studies if available would be helpful. There is no evidence of colovesical fistula. Electronically signed by Jeyson Catherine 10/12/2019 7:12 AM
[2019-10-12] MEDS: WELLBUTRIN SR PO SCH ×2 (09:01→21:01)
[2019-10-12] MEDS: CARDIZEM PO SCH ×2 (09:01→21:01)
[2019-10-12] MEDS: ESTRACE PO SCH (09:01)
[2019-10-12] MEDS: FLEXERIL PO SCH ×2 (09:01→21:01)
--- NOTE | 2019-10-12 10:30 | Diag Imaging Result Doc PS360 ---
EXAM: CT PELVIS W/O CONTRAST 10/12/2019 HISTORY: POST BARIUM ENEMA TECHNIQUE: This exam was performed using automated exposure control, adjustment of mA or kV according to patient size, and/or use of iterative reconstruction technique. COMMENT: The current study is compared with the recent previous examination of 10/12/2019 at 0000. No intravenous contrast was given and only rectal contrast was administered prior to the procedure. There is a small connection between the right lateral staple line of the end-to-side anastomosis in the sigmoid colon. This appears to communicate with the vaginal cuff on the left side. There is contrast in the urinary bladder which was present as a result of the intravenous contrast given for the earlier examination. There is no apparent communication with the urinary bladder. IMPRESSION: Fistulous communication of the sigmoid anastomosis with the vaginal cuff. Electronically signed by Jeyson Catherine 10/12/2019 10:28 AM
--- NOTE | 2019-10-12 10:34 | Diag Imaging Result Doc PS360 ---
EXAM: BARIUM ENEMA 10/12/2019 HISTORY: evaluate for colovaginal fistula TECHNIQUE: 10 images, 54 seconds fluoroscopy time, 1928.3 cGy. COMMENT: A limited procedure was performed with water-soluble contrast for evaluation of possible colovaginal fistula. The anastomosis is patent. There is a small stump of the distal sigmoid to the right which was produced by the end to side anastomosis. There are some diverticula proximal to the anastomosis. There is stool in the transverse colon. The patient was able to evacuate most of the contrast on the postevacuation view. There is a small wisp of contrast demonstrated to the left side of the anastomosis. This was further demonstrated on CT which was performed directly after the procedure. IMPRESSION: Colovaginal fistula. No evidence of obstruction. Electronically signed by Jeyson Catherine 10/12/2019 10:31 AM
[2019-10-12] MEDS: ZOFRAN IV PRN ×3 (11:09→22:50)
[2019-10-12] MEDS: DILAUDID IV PRN ×3 (11:09→21:00)
--- NOTE | 2019-10-12 13:15 | GENERAL SURGERY PROGRESS NOTE ---
DATE: 10/12/2019 SUBJECTIVE: Reviewed CT scan with Dr. Catherine. Reviewed barium enema. Reviewed post enema CT scan. There appears to be a fistula tract looks like from one of the staple lines. Reviewed imaging with [facility]. At this point after discussion with the patient, she is willing to have a diverting loop ileostomy versus colostomy. We will plan on trying to do that Tuesday. Discussed with her that this could heal up the area to decrease flow through the area, and plan would be 3 to 4 months from now takedown of the ostomy after evaluating the leak. We will have enterostomal therapy evaluate her for ostomy placement, but again the plan is surgery on Tuesday. We will get a consent. cc: Chavo Fall MD
[2019-10-12] MEDS ORDERED: BLISTEX MEDICATED BERRY LIP BALM TOP PRN (15:49)
[2019-10-12] MEDS: AMBIEN PO SCH (21:01)
[2019-10-13] MEDS: ZOSYN 3.375 GM in NS 50 ML IV SCH ×4 (03:59→21:58)
[2019-10-13] MEDS: PRILOSEC PO SCH ×2 (05:54→06:06)
[2019-10-13] MEDS: WELLBUTRIN SR PO SCH ×2 (10:07→21:57)
[2019-10-13] MEDS: FLEXERIL PO SCH ×2 (10:07→21:57)
[2019-10-13] MEDS: ESTRACE PO SCH (10:07)
[2019-10-13] MEDS: CARDIZEM PO SCH ×2 (10:07→21:57)
[2019-10-13] MEDS: NORCO-10 PO PRN ×2 (10:14→22:20)
[2019-10-13] MEDS: ZOFRAN IV PRN (10:46)
--- NOTE | 2019-10-13 12:12 | GENERAL SURGERY PROGRESS NOTE ---
DATE: 10/13/2019 SUBJECTIVE: The patient is doing well. She denies severe pain, nausea, vomiting, or fever. OBJECTIVE: Vital signs: She is afebrile. Vital signs are stable. General: She is awake, alert, oriented x3. No acute distress. Gastrointestinal: Soft, nontender. ASSESSMENT AND PLAN: A 64-year-old female who is status post low anterior resection, now with colovaginal fistula and anastomotic leak. She is being planned for diversion on Tuesday, and we will get her ready for that. cc: MD Chavo Marks MD
[2019-10-13] MEDS: DILAUDID IV PRN (15:57)
[2019-10-13] MEDS: AMBIEN PO SCH (22:20)
[2019-10-14] MEDS: ZOSYN 3.375 GM in NS 50 ML IV SCH ×4 (03:22→22:14)
[2019-10-14] MEDS: PRILOSEC PO SCH (06:07)
[2019-10-14] MEDS: NORCO-10 PO PRN ×2 (09:20→17:23)
[2019-10-14] MEDS: CARDIZEM PO SCH ×2 (09:57→22:14)
[2019-10-14] MEDS: FLEXERIL PO SCH ×2 (09:57→22:14)
[2019-10-14] MEDS: ESTRACE PO SCH (09:57)
[2019-10-14] MEDS: WELLBUTRIN SR PO SCH ×2 (09:57→22:14)
[2019-10-14] MEDS: DILAUDID IV PRN (15:04)
--- NOTE | 2019-10-14 17:34 | GENERAL SURGERY PROGRESS NOTE ---
DATE: 10/14/2019 SUBJECTIVE: The patient is doing fine. No new complaints. OBJECTIVE: She is afebrile. Vital signs are stable.General: She is awake, alert, no acute distress. GI: Soft nontender. ASSESSMENT AND PLAN: A 64-year-old female with colovaginal fistula status post low anterior resection. She is scheduled for colostomy diversion tomorrow. cc: MD Chavo Marks MD
[2019-10-14] MEDS: AMBIEN PO SCH (22:07)
[2019-10-15] MEDS: NORCO-10 PO PRN ×2 (03:11→18:10)
[2019-10-15] MEDS: ZOSYN 3.375 GM in NS 50 ML IV SCH ×2 (03:21→11:14)
[2019-10-15] MEDS: PRILOSEC PO SCH (06:05)
--- NOTE | 2019-10-15 06:08 | GENERAL SURGERY PROGRESS NOTE ---
DATE: 10/15/2019 SUBJECTIVE: Patient seems to be doing okay. The amount of drainage coming from her vagina has decreased. OBJECTIVE: Vital Signs: Patient is currently afebrile. Her vital signs are stable. General: No acute distress. Cardiovascular: Regular rate and rhythm. Lungs: Grossly clear. Abdomen: Soft. Nondistended. 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 Leak at this time. We will plan on diversion today. I had another extensive discussion with the patient about risks, benefits, and alternatives. We will have enterostomal therapy come and talk to her. I will keep her on antibiotics, and continue current treatment. cc: Chavo Fall MD
[2019-10-15] MEDS ORDERED: VERSED ONE (08:00)
[2019-10-15] MEDS ORDERED: DIPRIVAN 1% ONE (08:00)
[2019-10-15] MEDS ORDERED: EXPAREL 1.3% ONE (08:13)
[2019-10-15] MEDS ORDERED: MARCAINE 0.25% PF ONE (08:13)
[2019-10-15] MEDS ORDERED: FENTANYL ONE (09:13)
[2019-10-15] MEDS ORDERED: XYLOCAINE-MPF 2% ONE (09:21)
[2019-10-15] MEDS ORDERED: ZOFRAN ONE (09:21)
[2019-10-15] MEDS ORDERED: ZEMURON ONE (09:21)
[2019-10-15] MEDS ORDERED: DECADRON ONE (09:21)
[2019-10-15] MEDS ORDERED: EPHEDRINE ONE (09:32)
[2019-10-15] MEDS ORDERED: BRIDION ONE (09:55)
[2019-10-15] MEDS: DILAUDID ONE ×8 (10:03→10:44)
[2019-10-15] MEDS ORDERED: SODIUM CHLORIDE 0.9% 10 ML ONE (10:13)
[2019-10-15] MEDS: PHENERGAN ONE ×4 (10:14→10:33)
--- NOTE | 2019-10-15 10:38 | OPERATIVE NOTE ---
PROCEDURE DATE: 10/15/2019 PREOPERATIVE DIAGNOSIS: Leaking colonic anastomosis with decompression through her vagina. POSTOPERATIVE DIAGNOSIS: Leaking colonic anastomosis with decompression through her vagina. PROCEDURE PERFORMED: Laparoscopic diverting loop colostomy (transverse colon). SURGEON: Chavo Fall MD. ELECTRICAL EQUIPMENT TESTER: Dr. Polo. Dr. Polo assisted through the entirety of the case. His presence was crucial to the completion of the case. ANESTHESIA: General endotracheal. OPERATIVE FINDINGS: Redundant transverse colon very minimal with minimal mobilization to come up to the skin. COMPLICATIONS: None at the time of this dictation. ESTIMATED BLOOD LOSS: 10 mL. SPECIMENS REMOVED: None. BRIEF HISTORY: A 64-year-old female who had a low anterior resection. She had a leak and it was decompressing out her vagina. It was felt that to get it to heal, she needed a diversion. The risks, benefits, and alternatives were discussed. Risks including but not limited to bleeding, infection, risk of anesthesia, risk of further surgery required, risk of injury to bowel discussed. All questions were answered. DESCRIPTION OF PROCEDURE: After informed consent was obtained, the patient was brought to the operative theatre, transferred to the operating table, and placed in the supine position. General endotracheal anesthesia was then performed without complication. A formal time-out was then performed, confirming patient, date, and procedure. All were in agreement. At that time, attention was given to the abdomen. We inspected the previously marked colostomy sites. It was felt that one of the locations in her right upper quadrant would be amenable to a transverse colon colostomy after reviewing the CT scan extensively. We elected to try to do this laparoscopically. Even though we were 3 weeks out, we thought maybe we can safely get in. We made an incision over the colostomy site in the right upper quadrant. Using the Optiview technique, we inserted a 5 mm trocar, connected it to insufflation, pneumoperitoneum was achieved. We then placed another trocar in the right lower quadrant. Using this, we bluntly dissected down the omentum from the fascia. It was intact and healing. We were able to identify a piece of transverse colon that was very redundant and able to come up to the skin. We grasped it with a grasper from the right upper quadrant incision, extended it both medially and laterally, and into the fascia to eviscerate this piece of transverse colon. We were able to get around the transverse colon itself, placed a bar across it. I then made a colotomy and then matured it in place with 3-0 Vicryl. We placed a colostomy appliance. The patient tolerated the procedure well. All our other incision was closed with 4-0 Biosyn. We did salvador two blisters on her incision, which we packed with iodoform gauze. The patient tolerated the procedure well and was transferred back to the recovery room. cc: Chavo Fall MD
[2019-10-15] MEDS ORDERED: TORADOL ONE (10:51)
[2019-10-15] MEDS ORDERED: NORCO-10 ONE (10:52)
[2019-10-15 10:56] LABS: URINE SOURCE CATH
[2019-10-15 11:07] LABS: BILIRUBIN URINE NEGATIVE (NEGATIVE); BLOOD URINE NEGATIVE (NEGATIVE); COLOR YELLOW; GLUCOSE URINE NEGATIVE (NEGATIVE); KETONE URINE NEGATIVE (NEGATIVE); LEUKOCYTES URINE NEGATIVE (NEGATIVE); NITRITE URINE NEGATIVE (NEGATIVE); PROTEIN URINE NEGATIVE (NEGATIVE); SP GRAVITY URINE 1.022; TURBIDITY URINE CLEAR (CLEAR); UROBILINOGEN URINE NORMAL (NORMAL)
[2019-10-15 11:09] LABS: UR EPITHELIAL CELLS <10 /HPF (<10); URINE BACTERIA NEGATIVE /HPF; URINE RBC <10 /HPF (<10); URINE WBC <10 /HPF (<10)
[2019-10-15] MEDS ORDERED: HEPARIN SUBQ SCH (13:00)
[2019-10-15] MEDS: DILAUDID IV PRN ×4 (14:24→22:17)
[2019-10-15] MEDS: CARDIZEM PO SCH ×2 (19:07→20:09)
[2019-10-15] MEDS: WELLBUTRIN SR PO SCH ×2 (19:07→20:09)
[2019-10-15] MEDS: FLEXERIL PO SCH ×2 (19:08→20:09)
[2019-10-15] MEDS: ESTRACE PO SCH (19:08)
[2019-10-15] MEDS: PERIDEX MT SCH (20:09)
[2019-10-15] MEDS: AMBIEN PO SCH (20:09)
[2019-10-16] MEDS: NORCO-10 PO PRN ×5 (00:48→22:33)
[2019-10-16] MEDS: DILAUDID IV PRN ×8 (02:32→22:16)
--- NOTE | 2019-10-16 05:53 | GENERAL SURGERY PROGRESS NOTE ---
DATE: 10/16/2019 SUBJECTIVE: Patient doing well. She has had some ostomy output. She is passing gas. Her pain seems relatively well controlled. OBJECTIVE: Vital Signs: Patient is currently afebrile. Her vital signs are stable. General: No acute distress. Cardiovascular: Regular rate and rhythm. Lungs: Grossly clear. Abdomen: Soft and appropriately tender. Ostomy appears viable with stool in the appliance. ASSESSMENT AND PLAN: A 64-year-old female currently postoperative day #1 from diverting loop transverse colostomy. Postoperative state at this time. We will advance to regular diet. We will keep her here until at least Tuesday so we can take her bar out. We will potentially discharge her at that point. We will continue to monitor while she is in the hospital. cc: Chavo Fall MD
[2019-10-16] MEDS: PRILOSEC PO SCH (06:20)
[2019-10-16] MEDS: LEVAQUIN PO SCH (08:54)
[2019-10-16] MEDS: PERIDEX MT SCH ×2 (08:54→22:33)
[2019-10-16] MEDS: ESTRACE PO SCH (08:54)
[2019-10-16] MEDS: CARDIZEM PO SCH ×2 (08:54→22:33)
[2019-10-16] MEDS: FLEXERIL PO SCH ×2 (08:54→22:32)
[2019-10-16] MEDS: WELLBUTRIN SR PO SCH ×2 (08:54→22:32)
[2019-10-16] MEDS: AMBIEN PO SCH (22:32)
[2019-10-17] MEDS: DILAUDID IV PRN ×6 (00:45→21:47)
[2019-10-17] MEDS: NORCO-10 PO PRN ×5 (03:43→23:38)
--- NOTE | 2019-10-17 05:45 | GENERAL SURGERY PROGRESS NOTE ---
DATE: 10/17/2019 SUBJECTIVE: Patient seems to be doing okay. Ostomy is working. She tolerated her diet. OBJECTIVE: Vital Signs: Patient is currently afebrile. Her vital signs are stable. General: No acute distress. Cardiovascular: Regular rate and rhythm. Lungs: Grossly clear. Abdomen: Soft. Appropriately tender. Ostomy viable and functioning. ASSESSMENT AND PLAN: A 64-year-old female, currently postoperative day #2 from diverting loop transverse colostomy. Postoperative state. At this time, patient seems to be doing okay. I did transition her over to Levaquin based off her sensitivities for her culture. We will continue to monitor her. She has been afebrile. Hopefully, she can be discharged on Tuesday when we can take out her bar across her loop ostomy. cc: Chavo Fall MD MTDD
[2019-10-17] MEDS: PRILOSEC PO SCH ×2 (05:50→07:28)
[2019-10-17] MEDS: WELLBUTRIN SR PO SCH ×2 (09:35→21:48)
[2019-10-17] MEDS: LEVAQUIN PO SCH (09:35)
[2019-10-17] MEDS: FLEXERIL PO SCH ×2 (09:36→21:48)
[2019-10-17] MEDS: CARDIZEM PO SCH ×2 (09:36→21:48)
[2019-10-17] MEDS: PERIDEX MT SCH ×2 (09:37→21:48)
[2019-10-17] MEDS: ESTRACE PO SCH (09:37)
[2019-10-17] MEDS: AMBIEN PO SCH (21:48)
--- NOTE | 2019-10-18 06:00 | GENERAL SURGERY PROGRESS NOTE ---
DATE: 10/18/2019 SUBJECTIVE: The patient seems to be doing well. OBJECTIVE: Vital Signs: The patient is currently afebrile, her vital signs are stable. General: No acute distress. Cardiovascular: Regular rate and rhythm. Lungs: Grossly clear. Abdomen: Soft, appropriately tender. Ostomy is viable, with a bar in place. ASSESSMENT AND PLAN: A 64-year-old female, currently postoperative day #3 from diverting loop transverse colostomy. Postoperative state: At this time, she seems to be doing well. We have her on Levaquin right now for a wound infection. We will discontinue her Williamson. We will continue to monitor closely with the plan of taking out her bar on Tuesday. cc: Chavo Fall MD
[2019-10-18] MEDS: PRILOSEC PO SCH (06:08)
[2019-10-18] MEDS: NORCO-10 PO PRN ×5 (06:09→22:30)
[2019-10-18] MEDS: PERIDEX MT SCH ×2 (09:33→22:30)
[2019-10-18] MEDS: LEVAQUIN PO SCH (09:33)
[2019-10-18] MEDS: FLEXERIL PO SCH ×2 (09:34→22:30)
[2019-10-18] MEDS: CARDIZEM PO SCH ×2 (09:34→22:30)
[2019-10-18] MEDS: WELLBUTRIN SR PO SCH ×2 (09:34→22:30)
[2019-10-18] MEDS: ESTRACE PO SCH (09:34)
[2019-10-18] MEDS: DILAUDID IV PRN (20:54)
[2019-10-18] MEDS: AMBIEN PO SCH (22:30)
[2019-10-19] MEDS: DILAUDID IV PRN (05:07)
[2019-10-19] MEDS: PRILOSEC PO SCH ×2 (05:07→14:42)
--- NOTE | 2019-10-19 05:51 | GENERAL SURGERY PROGRESS NOTE ---
DATE: 10/19/2019 SUBJECTIVE: The patient seems to be doing okay. OBJECTIVE: Vital Signs: The patient is currently afebrile, her vital signs are stable. General: No acute distress. Cardiovascular: Regular rate and rhythm. Lungs: Grossly clear. Abdomen: Soft, appropriately tender. Ostomy viable, functioning, bar in place. ASSESSMENT AND PLAN: A 64 year, female, currently postoperative day #4 from diverting loop transverse colostomy. Postoperative state: At this time, the patient seems to be doing well. We have one more day until we remove the bar. We have her on Levaquin right now, which she will probably need to go home on. She is going to talk to her pain management doctor about pain control. cc: Chavo Fall MD
[2019-10-19] MEDS: ESTRACE PO SCH (08:51)
[2019-10-19] MEDS: FLEXERIL PO SCH ×2 (08:51→20:59)
[2019-10-19] MEDS: WELLBUTRIN SR PO SCH ×2 (08:51→20:59)
[2019-10-19] MEDS: NORCO-10 PO PRN ×3 (08:53→21:00)
[2019-10-19] MEDS: PERIDEX MT SCH ×2 (08:53→20:59)
[2019-10-19] MEDS: LEVAQUIN PO SCH (08:53)
[2019-10-19] MEDS: CARDIZEM PO SCH ×2 (08:53→20:59)
[2019-10-19] MEDS: ZOFRAN IV PRN (20:59)
[2019-10-19] MEDS: AMBIEN PO SCH (21:04)
[2019-10-20] MEDS: NORCO-10 PO PRN ×5 (01:05→22:49)
[2019-10-20] MEDS: ZOFRAN IV PRN ×2 (06:36→20:30)
[2019-10-20] MEDS: DILAUDID IV PRN ×2 (06:37→20:30)
[2019-10-20] MEDS: PRILOSEC PO SCH ×2 (08:04→08:39)
[2019-10-20] MEDS: FLEXERIL PO SCH ×2 (08:39→22:45)
[2019-10-20] MEDS: CARDIZEM PO SCH ×2 (08:39→22:45)
[2019-10-20] MEDS: ESTRACE PO SCH (08:39)
[2019-10-20] MEDS: LEVAQUIN PO SCH (08:39)
[2019-10-20] MEDS: WELLBUTRIN SR PO SCH ×2 (08:40→22:45)
[2019-10-20] MEDS: PERIDEX MT SCH ×2 (08:40→22:46)
[2019-10-20 11:11] LABS: BASO# 0.02 X1000 (0.0-0.2); BASO% 0.2 % (0.0-0.8); EOS# 0.88 X1000 (0.0-0.7); EOS% 10.8 % (0.0-10.0); HEMATOCRIT 38.8 % (37.0-47.0); HEMOGLOBIN 12.1 g/dL (12.0-16.0); IMM GRAN# 0.03 X1000 (0.0-0.04); IMM GRAN% 0.4 % (0.0-0.5); LYMPH# 1.57 X1000 (1.2-3.4); LYMPH% 19.2 % (20.5-51.1); MCH 26.7 PG (27-31); MCHC 31.2 g/dL (33-37); MCV 85.7 FL (81-99); MONO# 0.57 X1000 (0.11-0.59); MPV 9.8 FL (7.4-10.4); NEUT# 5.11 X1000 (1.4-6.5); NEUT% 62.4 % (42.2-75.2); PLT 452 X1000 (130-400); RBC 4.53 XMIL (4.2-5.4); RDW 15.1 % (11.5-14.5); WBC 8.18 X1000 (4.8-10.8)
[2019-10-20 11:28] LABS: CALCIUM 9.8 mg/dL (8.8-10.2); MAGNESIUM 1.9 mg/dL (1.5-2.7); POTASSIUM 4.2 mmol/L (3.5-5.1)
--- NOTE | 2019-10-20 15:50 | GENERAL SURGERY PROGRESS NOTE ---
DATE: 10/20/2019 SUBJECTIVE: Feels okay. Ostomy is functioning. No fevers. Pulse 94, blood pressure 115/56, O2 saturation 98%. Her abdomen is soft. Ostomy is pink, viable, with stool and gas in the bag. White count is 8, hematocrit 38, creatinine is 1.0. ASSESSMENT AND PLAN: A 64-year-old female status post low anterior resection. She had a contained leak and subsequent diverting loop colostomy. She is doing well at this point. We will treat her as if she is at home today. She should continue another day of ostomy education, remove her ostomy bar tomorrow, and plan for discharge home. She is on antibiotics. We will discharge her on these. She is for the most part ambulatory. I do not see that she is on a PPI. I will start this. cc: MD Chavo Dumont MD
[2019-10-20] MEDS: LOVENOX SUBQ SCH (17:31)
[2019-10-20] MEDS: AMBIEN PO SCH (22:45)
[2019-10-21] MEDS: PRILOSEC PO SCH (06:44)
[2019-10-21] MEDS: DILAUDID IV PRN (06:44)
[2019-10-21] MEDS: PERIDEX MT SCH ×2 (08:47→21:25)
[2019-10-21] MEDS: CARDIZEM PO SCH ×2 (08:47→21:25)
[2019-10-21] MEDS: NORCO-10 PO PRN ×4 (08:47→21:25)
[2019-10-21] MEDS: WELLBUTRIN SR PO SCH ×2 (08:47→21:27)
[2019-10-21] MEDS: LEVAQUIN PO SCH (08:47)
[2019-10-21] MEDS: FLEXERIL PO SCH ×2 (08:47→21:25)
[2019-10-21] MEDS: ESTRACE PO SCH (08:48)
--- NOTE | 2019-10-21 12:35 | GENERAL SURGERY PROGRESS NOTE ---
DATE: 10/21/2019 SUBJECTIVE: Ostomy is functioning. She is doing okay. She is moving about the room. No fevers. No tachycardia. OBJECTIVE: Blood pressure 113/64. General: She is alert. On exam her ostomy is pink, viable, stool and gas in the bag. I removed the ostomy bar. Her abdomen is otherwise soft, nontender. LABORATORY DATA: Her labs yesterday were show normal white count and renal function. ASSESSMENT AND PLAN: A 64-year-old female status post diverting loop colostomy with leak, status post low anterior. I think clinically she is approaching ready to be discharged on oral antibiotics. However, she has not changed her bag with the help of our ostomy nurse. I removed the bar today and it seems to be doing well, but she has elected and I agree to stay for formal ostomy education tomorrow. Plan for possible home tomorrow. cc: MD Chavo Dumont MD
[2019-10-21] MEDS: LOVENOX SUBQ SCH ×2 (13:52→17:52)
[2019-10-21] MEDS: AMBIEN PO SCH (23:15)
--- NOTE | 2019-10-22 05:54 | GENERAL SURGERY PROGRESS NOTE ---
DATE: 10/22/2019 SUBJECTIVE: Patient seems to be doing well. OBJECTIVE: Vital Signs: Patient is currently afebrile. Her vital signs are stable. General: No acute distress. Cardiovascular: Regular rate and rhythm. Lungs: Grossly clear. Abdomen: Soft. Appropriately tender. Ostomy functioning and viable. ASSESSMENT AND PLAN: A 64-year-old female status post diverting loop colostomy for leakage and anastomosis. Postoperative state. At this time, patient seems to be doing well. She wanted to stay around for another education with the ostomy nurse which I think we can do today. When she had that, we can discharge her home. She has already talked to her pain management doctor about the pain prescription. We will keep her on Levaquin likely for another 7 days. cc: Chavo Fall MD
[2019-10-22] MEDS: NORCO-10 PO PRN (05:55)
[2019-10-22] MEDS: PRILOSEC PO SCH ×2 (05:55→07:41)
[2019-10-22] MEDS: CARDIZEM PO SCH (10:03)
[2019-10-22] MEDS: PERIDEX MT SCH (10:03)
[2019-10-22] MEDS: WELLBUTRIN SR PO SCH (10:03)
[2019-10-22] MEDS: LEVAQUIN PO SCH (10:04)
[2019-10-22] MEDS: ESTRACE PO SCH (10:04)
[2019-10-22] MEDS: FLEXERIL PO SCH (10:04)
[2019-10-22] MEDS ORDERED: MYLICON PO PRN (11:32)
[2019-10-22 11:44] VITALS: BP 113/63
--- NOTE | 2019-10-24 10:46 | DISCHARGE SUMMARY ---
ADMISSION DATE: 10/12/2019 DISCHARGE DATE: 10/22/2019 ADMITTING DIAGNOSIS: Leak at the low anterior resection. DISCHARGE DIAGNOSIS: Status post diverting loop transverse colostomy. ADMITTING PHYSICIAN: Dr. Chavo Fall. CONSULTATIONS: None. PROCEDURES: On 10/15/2019, the patient underwent a laparoscopic diverting loop colostomy. BRIEF HISTORY AND COURSE OF STAY: This is a 64-year-old female who was 3 weeks out from a low anterior resection. She had a leak. It was starting to drain and decompress out of her vagina. She was admitted and started on IV antibiotics. Her imaging confirmed the finding. Resuscitated her, kept her on antibiotics, and decided to divert her. We did this laparoscopically. Her postop period was not complicated. We did have to keep her for 5 days at least for the ostomy bar and until she felt comfortable with ostomy care. On the day of discharge, she was up and ambulating, tolerating p.o. Her white blood cell count had trended down. She was afebrile and it was felt that she would be safe to be discharged home. All arrangements were made. DISCHARGE CONDITION: Stable. DISPOSITION: Home. DISCHARGE MEDICATIONS: Given a prescription for pain medicine. She was told to follow up with her pain specialist as far pain medicine but she was given antibiotics. FOLLOWUP: The patient was told to follow up with Dr. Fall in 1 week. cc: Chavo Fall MD
== END 2019-10-22 14:48 | disposition home health service (06) | DRG 330 ==
LOC: ED 21:10 → 4N 10-12 04:18
PROVIDERS: ADMIT Surgery; ATTEND Surgery